=== PATIENT | female | born 1980 | race African-American/Black ===

== ENCOUNTER 2016-12-15 02:46 | Emergency (ER) | payer SELFPAY ==
[~2016-12-15] VITALS: Ht 160 cm; Wt 59.0 kg
[2016-12-15] MEDS ORDERED: ONDANSETRON PF 4 MG/2 ML VIAL. IV ONE (03:15)
[2016-12-15] MEDS ORDERED: IV NORMAL SALINE 1000ML BAG 1,000 ML IV ONE (03:15)
[2016-12-15] MEDS ORDERED: KETOROLAC 30 MG/ML INJ. IV ONE (03:15)
[2016-12-15] MEDS ORDERED: fentaNYL PF VIAL 100 MCG/2 ML VIAL IV ONE (03:15)
[2016-12-15 03:29] LABS: BASO % 1 % (0-3); EOS % 1 % (0-3); HEMATOCRIT 35.1 % (36.0-47.0); HEMOGLOBIN 11.5 g/dL (12.0-15.5); LYMPH # 1.4 x10^3/uL (1.0-4.8); LYMPH % 18 % (24-48); MEAN CORPUSCULAR HEMOGLOBIN 28 pg (25-35); MEAN CORPUSCULAR HGB CONC 33 g/dL (31-37); MEAN CORPUSCULAR VOLUME 85 fL (79-100); MONO % 4 % (0-9); NEUT % 77 % (31-73); PLATELET COUNT 204 x10^3/uL (140-400); RED BLOOD COUNT 4.15 x10^6/uL (3.50-5.40); RED CELL DISTRIBUTION WIDTH 13.7 % (11.5-14.5); WHITE BLOOD COUNT 7.8 x10^3/uL (4.0-11.0)
[2016-12-15 03:32] LABS: BILIRUBIN,URINE NEGATIVE (NEG); GLUCOSE,URINE NEGATIVE (NEG); NITRITE,URINE NEGATIVE (NEG); PH,URINE 5.5; PROTEIN,URINE NEGATIVE (NEG-TRACE); UROBILINOGEN,URINE 0.2 mg/dL (0.2 mg/dL)
[2016-12-15 03:36] LABS: BACTERIA,URINE 0 /HPF (0-FEW); RBC,URINE TNTC /HPF (0-2); WBC,URINE 0 /HPF (0-4)
[2016-12-15 03:37] LABS: SQUAMOUS EPITHELIAL CELL,UR FEW /LPF
[2016-12-15 03:40] LABS: CALCIUM 10.1 mg/dL (8.5-10.1); CREATININE 0.8 mg/dL (0.6-1.0); GFR 97.7; POTASSIUM 3.6 mmol/L (3.5-5.1)
[2016-12-15 03:46] LABS: ALBUMIN 3.9 g/dL (3.4-5.0); ALBUMIN/GLOBULIN RATIO 1.1 (1.0-1.7); MAGNESIUM 1.8 mg/dL (1.8-2.4); TOTAL BILIRUBIN 0.2 mg/dL (0.2-1.0); TOTAL PROTEIN 7.3 g/dL (6.4-8.2)
--- NOTE | 2016-12-15 04:16 | PHYS DOC ---
Past Medical History Past Medical History: Other Additional Past Medical Histor: ulcers Past Surgical History: No Surgical History Alcohol Use: None Drug Use: None Adult General Chief Complaint Chief Complaint: ABDOMINAL PAIN HPI HPI Patient is a 36 year old female presenting to the emergency department for evaluation of worsening back and right-sided abdominal pain that had been worsening over the past 3-4 hours. She says that she has nausea and vomited 3- 4 times. Pain is right upper quadrant to right lower quadrant and goes to the right flank area. She looks quite uncomfortable like kidney stone type pain however she denies having kidney stones before in the past. She has had some urinary frequency but no fevers chills diarrhea constipation dysuria hematuria vaginal bleeding or vaginal discharge. She is uncomfortable but nontoxic- appearing. Review of Systems Review of Systems Constitutional: Denies fever or chills [] Respiratory: Denies cough or shortness of breath [] Cardiovascular: No additional information not addressed in HPI [] GI: + abdominal pain, nausea, vomiting. No bloody stools or diarrhea [] : Denies dysuria or hematuria [] Musculoskeletal: + back pain Neurologic: Denies headache, focal weakness or sensory changes [] Current Medications Current Medications Current Medications Medications (Trade) Dose Ordered Sig/Sandra Start Time Stop Time Status Last Admin Dose Admin Fentanyl Citrate (Fentanyl 2ml Vial) 75 mcg 1X ONCE 12/15/16 03:15 12/15/16 03:58 DC 12/15/16 03:27 75 MCG Ketorolac Tromethamine (Toradol) 30 mg 1X ONCE 12/15/16 03:15 12/15/16 03:58 DC 12/15/16 03:36 30 MG Ondansetron HCl (Zofran) 8 mg 1X ONCE 12/15/16 03:15 12/15/16 03:58 DC 12/15/16 03:26 8 MG Oxycodone/ Acetaminophen (Percocet 5/325) 1 tab 1X ONCE 12/15/16 05:00 12/15/16 05:01 12/15/16 04:51 1 TAB Sodium Chloride 1,000 ml @ 1,000 mls/hr 1X ONCE 12/15/16 03:15 12/15/16 04:14 DC 12/15/16 03:26 1,000 MLS/HR Tamsulosin HCl (Flomax) 0.4 mg 1X ONCE 12/15/16 05:00 12/15/16 05:01 12/15/16 04:51 0.4 MG Allergies Allergies Allergies Coded Allergies Type Severity Reaction Last Updated Verified No Known Drug Allergies 12/15/16 No Physical Exam Physical Exam Constitutional: Well developed, well nourished, no acute distress, non-toxic appearance. [] Cardiovascular:Heart rate regular rhythm, no murmur [] Lungs & Thorax: Bilateral breath sounds clear to auscultation [] Abdomen: Bowel sounds normal, soft. + RUQ AND RLQ tenderness, no rebound or guarding, no masses, no pulsatile masses. [] Skin: Warm, dry, no erythema, no rash. [] Back: No tenderness, + R CVA tenderness. [] Extremities: No tenderness, no cyanosis, no clubbing, ROM intact, no edema. [] Neurologic: Alert and oriented X 3, normal motor function, normal sensory function, no focal deficits noted. [] Current Patient Data Vital Signs Vital Signs Date Time Temp Pulse Resp B/P (MAP) Pulse Ox O2 Delivery O2 Flow Rate FiO2 12/15/16 02:58 98.2 64 18 151/92 (111) 100 Room Air 98.2 Lab Values Laboratory Tests Test 12/15/16 02:53 12/15/16 03:19 12/15/16 03:26 Urine Collection Type Unknown Urine Color Yellow Urine Clarity Clear Urine pH 5.5 Urine Specific [place] 1.015 Urine Protein Negative mg/dL (NEG-TRACE) Urine Glucose (UA) Negative mg/dL (NEG) Urine Ketones (Stick) Negative mg/dL (NEG) Urine Blood Large (NEG) Urine Nitrite Negative (NEG) Urine Bilirubin Negative (NEG) Urine Urobilinogen Dipstick 0.2 mg/dL (0.2 mg/dL) Urine Leukocyte Esterase Negative (NEG) Urine RBC Tntc /HPF (0-2) Urine WBC 0 /HPF (0-4) Urine Squamous Epithelial Cells Few /LPF Urine Bacteria 0 /HPF (0-FEW) Urine Mucus Mod /LPF White Blood Count 7.8 x10^3/uL (4.0-11.0) Red Blood Count 4.15 x10^6/uL (3.50-5.40) Hemoglobin 11.5 g/dL (12.0-15.5) L Hematocrit 35.1 % (36.0-47.0) L Mean Corpuscular Volume 85 fL (79-100) Mean Corpuscular Hemoglobin 28 pg (25-35) Mean Corpuscular Hemoglobin Concent 33 g/dL (31-37) Red Cell Distribution Width 13.7 % (11.5-14.5) Platelet Count 204 x10^3/uL (140-400) Neutrophils (%) (Auto) 77 % (31-73) H Lymphocytes (%) (Auto) 18 % (24-48) L Monocytes (%) (Auto) 4 % (0-9) Eosinophils (%) (Auto) 1 % (0-3) Basophils (%) (Auto) 1 % (0-3) Neutrophils # (Auto) 6.0 x10^3uL (1.8-7.7) Lymphocytes # (Auto) 1.4 x10^3/uL (1.0-4.8) Monocytes # (Auto) 0.3 x10^3/uL (0.0-1.1) Eosinophils # (Auto) 0.0 x10^3/uL (0.0-0.7) Basophils # (Auto) 0.0 x10^3/uL (0.0-0.2) Sodium Level 142 mmol/L (136-145) Potassium Level 3.6 mmol/L (3.5-5.1) Chloride Level 104 mmol/L (98-107) Carbon Dioxide Level 23 mmol/L (21-32) Anion Gap 15 (6-14) H Blood Urea Nitrogen 16 mg/dL (7-20) Creatinine 0.8 mg/dL (0.6-1.0) Estimated GFR (Cockcroft-Gault) 97.7 BUN/Creatinine Ratio 20 (6-20) Glucose Level 133 mg/dL (70-99) H Calcium Level 10.1 mg/dL (8.5-10.1) Magnesium Level 1.8 mg/dL (1.8-2.4) Total Bilirubin 0.2 mg/dL (0.2-1.0) Aspartate Amino Transferase (AST) 21 U/L (15-37) Alanine Aminotransferase (ALT) 25 U/L (14-59) Alkaline Phosphatase 32 U/L (46-116) L Total Protein 7.3 g/dL (6.4-8.2) Albumin 3.9 g/dL (3.4-5.0) Albumin/Globulin Ratio 1.1 (1.0-1.7) Lipase 212 U/L (73-393) POC Urine HCG, Qualitative Hcg negative (Negative) Laboratory Tests 12/15/16 03:19 Laboratory Tests 12/15/16 03:19 EKG EKG [] Radiology/Procedures Radiology/Procedures INDICATION: right flank pain; hematuria COMPARISON: None. TECHNIQUE: Axial CT images were obtained through the abdomen and pelvis without intravenous contrast. Limited assessment of solid organ structures and vasculature secondary to lack of intravenous contrast. One or more of the following individualized dose reduction techniques were utilized for this examination: 1. Automated exposure control; 2. Adjustment of the mA and/or kV according to patient size; 3. Use of iterative reconstruction technique. FINDINGS: Chest Base: Partially imaged without gross abnormality. Vessels: No abdominal aortic aneurysm. Liver/Biliary: No intrahepatic biliary duct dilation. Pancreas: No peripancreatic edema. Poorly evaluated without contrast. Spleen: Normal. Kidneys/Adrenal: Right-sided hydronephrosis with perinephric edema and small amount of perinephric fluid. The ureter is difficult to follow in the pelvis secondary to lack of adjacent fat. There are multiple calcifications seen within the pelvis bilaterally including a calcification near the expected location of the right distal ureter measuring approximately 5 mm Bladder: Largely decompressed. GI: Moderate amount of stool is seen with the distal colon. Portions of the colon are not very distended with prominence of the wall including portions of transverse and descending colon. The suspected appendix appears mildly distended up to 8 mm without definite surrounding inflammation at this time. Small fat-containing umbilical hernia. Calcification left side of uterus, could be fibroid. Degenerative changes the spine with multiple suspected disc protrusions with associated central canal and neural foraminal stenosis. IMPRESSION: 1. Right-sided hydronephrosis and hydroureter with perinephric edema and fluid seen. There is a suspected right distal ureter stone. 2. The appendix is mildly dilated but no definite adjacent inflammatory changes at this time. Please note that some patients can have a dilated appendix at baseline but if there is concern for appendicitis further imaging workup includes obtaining a follow-up CT to ensure that there is not interval increase in size of the appendix or development of definitive adjacent inflammation to suggest causes such as appendicitis. 3. Suspected uterine fibroid. Electronically signed by: Ashwini Espinoza MD (12/15/2016 4:25 AM) [facility] DICTATED and SIGNED BY: ASHWINI ESPINOZA MD DATE: 12/15/16406 Course & Med Decision Making Course & Med Decision Making Her symptoms are most consistent with a kidney stone so we'll order CT without contrast ordered labs urine and treat symptoms and reassess. Pain and nausea almost completely resolved with the treatment of fentanyl Toradol and Zofran. CT most consistent with still ureter stone given the hydronephrosis however the multiple phleboliths made it more difficult to make a definitive diagnosis. I have no concerns for appendicitis based on patient's exam and presentation. Patient stone is fairly large and I discussed inpatient versus outpatient treatment. I told her that she would need to be transferred to another facility if she is going to be treated inpatient for pain and urology consult. Patient would very much rather go home as her pain and nausea are almost completely gone. I told her to come back to the emergency department with any new or worsening pain fevers vomiting or other general concerns. Patient will be discharged with Percocet Zofran and Flomax. Patient aware and agreeable with plan for discharge and verbalized understanding of the need for short-term follow-up in the strict ED return precautions discussed as above. Dragon Disclaimer Dragon Disclaimer This electronic medical record was generated, in whole or in part, using a voice recognition dictation system. Departure Departure Impression: Primary Impression: Ureteral stone with hydronephrosis Disposition: HOME, SELF-CARE Condition: STABLE Referrals: NO PCP (PCP) Patient Instructions: Kidney Stones Additional Instructions: TAKE 400MG OF IBUPROFEN EVERY 6 HOURS AND THE PERCOCET FOR BREAKTHROUGH PAIN. MAKE SURE THAT YOU ARE DRINKING PLENTY OF WATER. PLEASE CALL THIS NUMBER AT [facility] TO GET UROLOGY FOLLOW UP. [phone]. COME BACK TO THE ED WITH WORSENING PAIN, FEVERS, VOMITING, OR OTHER GENERAL CONCERNS. THANK YOU! Scripts Tamsulosin Hcl (FLOMAX) 0.4 Mg Cap.er.24h 1 CAP PO QHS, #6 CAP 0 Refills Prov: JOHNNA BOWMAN DO 12/15/16 Ondansetron (ZOFRAN ODT) 4 Mg Tab.rapdis 4 MG PO BID Y for NAUSEA/VOMITING, #10 TAB Prov: JOHNNA BOWMAN DO 12/15/16 Oxycodone/Apap 5-325 (PERCOCET 5-325 MG TABLET) 1 Each Tablet 1 TAB PO PRN Q6HRS Y for PAIN, #20 TAB 0 Refills Prov: JOHNNA BOWMAN DO 12/15/16 JOHNAN BOWMAN DO Dec 15, 2016 04:16
--- NOTE | 2016-12-15 04:28 | RAD ---
INDICATION: right flank pain; hematuria COMPARISON: None. TECHNIQUE: Axial CT images were obtained through the abdomen and pelvis without intravenous contrast. Limited assessment of solid organ structures and vasculature secondary to lack of intravenous contrast. One or more of the following individualized dose reduction techniques were utilized for this examination: 1. Automated exposure control; 2. Adjustment of the mA and/or kV according to patient size; 3. Use of iterative reconstruction technique. FINDINGS: Chest Base: Partially imaged without gross abnormality. Vessels: No abdominal aortic aneurysm. Liver/Biliary: No intrahepatic biliary duct dilation. Pancreas: No peripancreatic edema. Poorly evaluated without contrast. Spleen: Normal. Kidneys/Adrenal: Right-sided hydronephrosis with perinephric edema and small amount of perinephric fluid. The ureter is difficult to follow in the pelvis secondary to lack of adjacent fat. There are multiple calcifications seen within the pelvis bilaterally including a calcification near the expected location of the right distal ureter measuring approximately 5 mm Bladder: Largely decompressed. GI: Moderate amount of stool is seen with the distal colon. Portions of the colon are not very distended with prominence of the wall including portions of transverse and descending colon. The suspected appendix appears mildly distended up to 8 mm without definite surrounding inflammation at this time. Small fat-containing umbilical hernia. Calcification left side of uterus, could be fibroid. Degenerative changes the spine with multiple suspected disc protrusions with associated central canal and neural foraminal stenosis. IMPRESSION: 1. Right-sided hydronephrosis and hydroureter with perinephric edema and fluid seen. There is a suspected right distal ureter stone. 2. The appendix is mildly dilated but no definite adjacent inflammatory changes at this time. Please note that some patients can have a dilated appendix at baseline but if there is concern for appendicitis further imaging workup includes obtaining a follow-up CT to ensure that there is not interval increase in size of the appendix or development of definitive adjacent inflammation to suggest causes such as appendicitis. 3. Suspected uterine fibroid. Electronically signed by: Lupillo Espinoza MD (12/15/2016 4:25 AM) [facility]
[2016-12-15] MEDS ORDERED: TAMSULOSIN 0.4 MG CAP.ER.24H. PO ONE (05:00)
[2016-12-15] MEDS ORDERED: oxyCODONE/APAP 5/325 1 TAB TABLET PO ONE (05:00)
[2016-12-15] MEDS ORDERED: ONDA4TAB10 PO (05:02)
[2016-12-15] MEDS ORDERED: OXYC-323 PO (05:02)
[2016-12-15] MEDS ORDERED: TAMS0.4C97 PO (05:02)
[2016-12-15 05:08] VITALS: BP 124/80
== END 2016-12-15 05:20 | disposition home or self-care (01) ==
LOC: ER 02:46
DX: N13.2 Hydronephrosis with renal and ureteral calculous obstruction (principal)
CPT/HCPCS: 36415; 74176; 80053; 81001; 81025; 83690; 83735; 85025; 96361; 96374; 96375; 99285; J1885; J2405; J3010; J7030

== ENCOUNTER 2017-01-19 09:54 | Emergency (ER) | payer SELFPAY ==
[~2017-01-19] VITALS: Ht 157.5 cm; Wt 61.2 kg
[~2017-01-19 09:54] MED LIST: ONDA4TAB10 PO; OXYC-323 PO; TAMS0.4C97 PO
[2017-01-19 10:00] VITALS: BP 146/90
--- NOTE | 2017-01-19 10:13 | PHYS DOC ---
Past Medical History Past Medical History: Other Additional Past Medical Histor: ulcers Past Surgical History: No Surgical History Alcohol Use: None Drug Use: None Adult General Chief Complaint Chief Complaint: LOWER EXT PAIN HPI HPI Patient is a 36 year old female presents to the emergency department stating that she was seen on Tuesday for right thigh pain and discomfort. She was placed on naproxen and baclofen. She states that she kicked medication Tuesday and Tuesday and felt no relief therefore she stopped taking the medication. She states it feels like a cramping-type pain in her muscles she rates it a 5 out of 10. She states that she has no numbness or tingling down to the lower extremity. She states that the constant pain. She denies any injury or trauma to the leg. She denies any back pain or discomfort. Review of Systems Review of Systems Constitutional: Denies fever or chills [] Eyes: Denies change in visual acuity, redness, or eye pain [] HENT: Denies nasal congestion or sore throat [] Respiratory: Denies cough or shortness of breath [] Cardiovascular: No additional information not addressed in HPI [] GI: Denies abdominal pain, nausea, vomiting, bloody stools or diarrhea [] : Denies dysuria or hematuria [] Musculoskeletal: Denies back pain. C/o right thigh pain Integument: Denies rash or skin lesions [] Neurologic: Denies headache, focal weakness or sensory changes [] Endocrine: Denies polyuria or polydipsia [] All other systems were reviewed and found to be within normal limits, except as documented in this note. Allergies Allergies Allergies Coded Allergies Type Severity Reaction Last Updated Verified No Known Drug Allergies 12/15/16 No Physical Exam Physical Exam Constitutional: Well developed, well nourished, no acute distress, non-toxic appearance. [] HENT: Normocephalic, atraumatic, bilateral external ears normal, oropharynx moist, no oral exudates, nose normal. [] Eyes: PERRLA, EOMI, conjunctiva normal, no discharge. [] Neck: Normal range of motion, no tenderness, supple, no stridor. [] Cardiovascular:Heart rate regular rhythm, no murmur [] Lungs & Thorax: Bilateral breath sounds clear to auscultation []] Skin: Warm, dry, no erythema, no rash. [] Back: No tenderness Extremities: Right thigh with palpable tenderness, no cyanosis, no clubbing, ROM intact, no edema. Peripheral pulses 2+ cap refill brisk, less than 2 seconds. Neurologic: Alert and oriented X 3, normal motor function, normal sensory function, no focal deficits noted. [] Psychologic: Affect normal, judgement normal, mood normal. [] Current Patient Data Vital Signs Vital Signs Date Time Temp Pulse Resp B/P (MAP) Pulse Ox O2 Delivery O2 Flow Rate FiO2 01/19/17 10:00 98.5 77 18 99 Room Air 98.5 EKG EKG [] Radiology/Procedures Radiology/Procedures [][facility] [address] [place] [address] IMAGING REPORT Signed PATIENT: MARILYN GARCIA ACCOUNT: [id number] : 1980 LOCATION: ER AGE: 36 SEX: F EXAM STATUS: PRE ER ORD. PHYSICIAN: KENYON MONTEZ APRN REASON: right thigh pain and discomfort for 1 week PROCEDURE: VENOUS LOWER EXTREMITY RIGHT Right lower extremity venous ultrasound, 01/19/2017 : History: Right thigh pain Duplex evaluation including grayscale, color flow and spectral Doppler analysis was performed. The femoral and popliteal veins show no filling defects to suggest DVT. The visualized deep veins in the right calf are unremarkable. IMPRESSION: There is no sonographic evidence of deep vein thrombosis in the right lower extremity DICTATED and SIGNED BY: MARK CARRERO MD DATE: 01/19/17 1045 CC: KENYON MONTEZ APRN; NO PCP ~ Course & Med Decision Making Course & Med Decision Making Pertinent Labs and Imaging studies reviewed. (See chart for details) Venous Doppler of the right leg was negative for DVT per radiologist. Patient will be discharged home in stable condition. She was instructed to continue to use the medications a prescribed. Recommended warm moist packs to the right thigh several times a day. Patient will be discharge home in stable condition. I've spoken with the patient and/or caregivers. I've explained the patient's condition, diagnosis and treatment plan based on information available to me at this time. I've answered the patient's and/or caregivers questions and addressed any concerns. The patient and/or caregivers have a good understanding the patient's diagnosis, condition and treatment plan as can be expected at this point. Vital signs have been stabilized. The patient's condition is stable for discharge from the emergency department. The patient will pursue further outpatient evaluation with her primary care provider or other designated consulting physician as outlined in the discharge instructions. Patient and/or caregivers are agreeable to this plan of care and follow-up instructions have been explained in detail. The patient and/or caregivers have received these instructions in written format and expressed understanding of these discharge instructions. The patient and her caregivers are aware that if any significant change in condition or worsening of symptoms should prompt him to immediately return to this of the closest emergency department.~ If an emergent department is not readily available I would encourage him to call 911. [] Dragon Disclaimer Dragon Disclaimer This electronic medical record was generated, in whole or in part, using a voice recognition dictation system. Departure Departure Impression: Primary Impression: Right thigh pain Disposition: HOME, SELF-CARE Condition: STABLE Referrals: NO PCP (PCP) Patient Instructions: Muscle Strain, [id number] Additional Instructions: Activity as tolerated Continue with the Baclofen and Naproxen that you have been prescribed Warm moist packs to the right thigh area several times a day Elevation as much as possible Followup with your primary care provider in 5-7 days Return to emergency department as needed for signs and symptoms that becomes worse. KENYON MONTEZ APRN Jan 19, 2017 10:13
--- NOTE | 2017-01-19 10:51 | RAD ---
Right lower extremity venous ultrasound, 01/19/2017 : History: Right thigh pain Duplex evaluation including grayscale, color flow and spectral Doppler analysis was performed. The femoral and popliteal veins show no filling defects to suggest DVT. The visualized deep veins in the right calf are unremarkable. IMPRESSION: There is no sonographic evidence of deep vein thrombosis in the right lower extremity
== END 2017-01-19 11:12 | disposition home or self-care (01) ==
LOC: ER 09:54
DX: M79.651 Pain in right thigh (principal)
CPT/HCPCS: 93971; 99284-25

== ENCOUNTER 2018-03-27 09:36 | Emergency (ER) | payer SELFPAY ==
[~2018-03-27] VITALS: Ht 172.7 cm; Wt 59.0 kg
[~2018-03-27 09:36] MED LIST changes: -OXYC-323 PO; +OXYC1TAB15 PO
[2018-03-27] MEDS ORDERED: LIDO:MAALOX 1:1 20 ML SINGLE DOSE. ONE (11:31)
[2018-03-27 11:40] LABS: BILIRUBIN,URINE NEGATIVE (NEG); CLARITY,URINE CLEAR; COLOR,URINE YELLOW; NITRITE,URINE NEGATIVE (NEG); PROTEIN,URINE 30 mg/dL (NEG-TRACE)
--- NOTE | 2018-03-27 11:41 | PHYS DOC ---
Past Medical History Past Medical History: No Pertinent History Additional Past Medical Histor: ulcers Past Surgical History: No Surgical History Alcohol Use: None Drug Use: None Adult General Chief Complaint Chief Complaint: ABDOMINAL PAIN HPI HPI Patient is a 37 year old female who presents with complaining of lower abdominal pain for 3 days. Patient states she developed an allergic rash and marked lower abdominal pain 3 days ago and took Benadryl and since taking Benadryl had constant and severe lower abdominal pain patient to her back. Patient complaining of nausea and one episode of vomiting last night. Patient denies urinary symptoms, constipation and diarrhea, fever and chills, history of vaginal bleeding or , history of the same pain.Patient states the rash resolved after taking Benadryl but abdominal pain is not getting better. Review of Systems Review of Systems Constitutional: Denies fever or chills [] Eyes: Denies change in visual acuity, redness, or eye pain [] HENT: Denies nasal congestion or sore throat [] Respiratory: Denies cough or shortness of breath [] Cardiovascular: No additional information not addressed in HPI [] GI: Reports abdominal pain, nausea, vomiting, denies bloody stools or diarrhea [ ] : Denies dysuria or hematuria [] Musculoskeletal: Denies back pain or joint pain [] Integument: Denies rash or skin lesions [] Neurologic: Denies headache, focal weakness or sensory changes [] Endocrine: Denies polyuria or polydipsia [] All other systems were reviewed and found to be within normal limits, except as documented in this note. Current Medications Current Medications Current Medications Medications (Trade) Dose Ordered Sig/[facility] Start Time Stop Time Status Last Admin Dose Admin Multi-Ingredient Mouthwash/Gargle (Gi Cocktail) 20 ml STK-MED ONCE 03/27/18 11:31 03/27/18 11:33 DC Allergies Allergies Allergies Coded Allergies Type Severity Reaction Last Updated Verified No Known Drug Allergies 12/15/16 No Physical Exam Physical Exam Constitutional: Well developed, well nourished,mild distress, non-toxic appearance. [] HENT: Normocephalic, atraumatic, oropharynx moist, no oral exudates, nose normal. [] Eyes: PERRLA, EOMI, conjunctiva normal, no discharge. [] Neck: Normal range of motion, no tenderness, supple, no stridor. [] Cardiovascular:Heart rate regular rhythm, no murmur [] Lungs & Thorax: Bilateral breath sounds clear to auscultation [] Abdomen: Bowel sounds normal, soft, no tenderness, no masses, no pulsatile masses. [] Skin: Warm, dry, no erythema, no rash. [] Back: No tenderness, no CVA tenderness. [] Extremities: No tenderness, no cyanosis, no clubbing, ROM intact, no edema. [] Neurologic: Alert and oriented X 3, normal motor function, normal sensory function, no focal deficits noted. [] Psychologic: Affect normal, judgement normal, mood normal. [] Current Patient Data Vital Signs Vital Signs Date Time Temp Pulse Resp B/P (MAP) Pulse Ox O2 Delivery O2 Flow Rate FiO2 03/27/18 14:15 114 16 135/68 (90) 98 Room Air 03/27/18 09:45 99.1 99.1 Lab Values Laboratory Tests Test 03/27/18 11:14 03/27/18 11:19 Urine Collection Type Unknown Urine Color Yellow Urine Clarity Clear Urine pH 6.0 Urine Specific [place] >=1.030 Urine Protein 30 mg/dL (NEG-TRACE) Urine Glucose (UA) Negative mg/dL (NEG) Urine Ketones (Stick) Trace mg/dL (NEG) Urine Blood Small (NEG) Urine Nitrite Negative (NEG) Urine Bilirubin Negative (NEG) Urine Urobilinogen Dipstick 1.0 mg/dL (0.2 mg/dL) Urine Leukocyte Esterase Negative (NEG) Urine RBC 6-10 /HPF (0-2) Urine WBC Rare /HPF (0-4) Urine Squamous Epithelial Cells Few /LPF Urine Bacteria Few /HPF (0-FEW) Urine Mucus Marked /LPF POC Urine HCG, Qualitative Hcg negative (Negative) EKG EKG [] Radiology/Procedures Radiology/Procedures [facility] [address] [place] [address] IMAGING REPORT Signed PATIENT: MARILYN GARCIA ACCOUNT: [id number] : 1980 LOCATION: ER AGE: 37 SEX: F EXAM STATUS: REG ER ORD. PHYSICIAN: EMILY ZHU MD REASON: lower abdominal pain and hematuria, history of kidney stone PROCEDURE: CT ABDOMEN PELVIS WO CONTRAST CT of the abdomen and pelvis without contrast 03/27/2018 INDICATION: Kidney stone, flank pain. Dysuria. COMPARISON STUDY: CT of the abdomen and pelvis without contrast December 15, 2016. TECHNIQUE: Multidetector CT imaging of the abdomen and pelvis was performed without the administration of IV contrast. FINDINGS: Visualized lung bases are unremarkable. Liver, gallbladder, adrenal glands, spleen, and pancreas are grossly unremarkable. The bilateral kidneys demonstrate no nephrolithiasis, or hydronephrosis. The ureters are unremarkable in course and caliber. No ureteral stone is identified. The bladder is poorly evaluated secondary to decompressed state. Calcified uterine lesion consistent with a fibroid noted. No significant free fluid or free air seen in the abdomen or pelvis. There is no evidence of bowel obstruction. No evidence of acute inflammatory change involving the bowel is identified. Some intramural colonic fat noted. This is of uncertain clinical significance. This is unchanged from comparison study. No acute osseous abnormality is identified. IMPRESSION: No evidence of acute intra-abdominal abnormality is seen. CT DOSING PQRS STATEMENT: One or more of the following individualized dose reduction techniques were utilized for this examination: 1. Automated exposure control 2. Adjustment of the mA and/or kV according to patient size 3. Use of iterative reconstruction technique Electronically signed by: Doc Bee MD (03/27/2018 2:00 PM) [facility] DICTATED and SIGNED BY: DOC BEE MD DATE: 03/27/18 4709 Course & Med Decision Making Course & Med Decision Making Pertinent Labs and Imaging studies reviewed. (See chart for details) Evaluation of patient in ER showed 37-year-old female patient with complaining of lower abdominal pain for 3 days that became worse after allergic rash. Had unremarkable physical exam except for lower abdominal guarding. UA showed microscopic hematuria and CT of abdomen and pelvis did not show acute finding. Patient felt better with GI cocktail. Plan discharge patient home to diagnose of abdominal pain. Dragon Disclaimer Dragon Disclaimer This electronic medical record was generated, in whole or in part, using a voice recognition dictation system. Departure Departure Impression: Primary Impression: Lower abdominal pain Additional Impression: Microscopic hematuria Disposition: HOME, SELF-CARE (at 1430) Condition: IMPROVED Referrals: NO PCP (PCP) Patient Instructions: Abdominal Pain (Nonspecific), Drug Allergy Additional Instructions: Drink plenty of liquids Follow-up with your primary care physician in 3-5 days Return to ER if not getting better Scripts Tramadol Hcl (ULTRAM) 50 Mg Tablet 50 MG PO Q6HRS PRN for PAIN, #14 TAB 0 Refills Prov: EMILY ZHU MD 03/27/18 Problem Qualifiers EMILY ZHU MD Mar 27, 2018 11:41
[2018-03-27] MEDS ORDERED: LIDO:MAALOX 1:1 20 ML SINGLE DOSE. SWSW ONE (11:45)
[2018-03-27 11:48] LABS: BACTERIA,URINE FEW /HPF (0-FEW); SQUAMOUS EPITHELIAL CELL,UR FEW /LPF; WBC,URINE RARE /HPF (0-4)
--- NOTE | 2018-03-27 14:04 | RAD ---
CT of the abdomen and pelvis without contrast 03/27/2018 INDICATION: Kidney stone, flank pain. Dysuria. COMPARISON STUDY: CT of the abdomen and pelvis without contrast December 15, 2016. TECHNIQUE: Multidetector CT imaging of the abdomen and pelvis was performed without the administration of IV contrast. FINDINGS: Visualized lung bases are unremarkable. Liver, gallbladder, adrenal glands, spleen, and pancreas are grossly unremarkable. The bilateral kidneys demonstrate no nephrolithiasis, or hydronephrosis. The ureters are unremarkable in course and caliber. No ureteral stone is identified. The bladder is poorly evaluated secondary to decompressed state. Calcified uterine lesion consistent with a fibroid noted. No significant free fluid or free air seen in the abdomen or pelvis. There is no evidence of bowel obstruction. No evidence of acute inflammatory change involving the bowel is identified. Some intramural colonic fat noted. This is of uncertain clinical significance. This is unchanged from comparison study. No acute osseous abnormality is identified. IMPRESSION: No evidence of acute intra-abdominal abnormality is seen. CT DOSING PQRS STATEMENT: One or more of the following individualized dose reduction techniques were utilized for this examination: 1. Automated exposure control 2. Adjustment of the mA and/or kV according to patient size 3. Use of iterative reconstruction technique Electronically signed by: Sunny Babcock MD (03/27/2018 2:00 PM) [facility]
[2018-03-27 14:15] VITALS: BP 135/68
[2018-03-27] MEDS ORDERED: TRAM-48 PO (14:32)
== END 2018-03-27 14:42 | disposition home or self-care (01) ==
LOC: ER 09:36
DX: R10.30 Lower abdominal pain, unspecified (principal); R11.2 Nausea with vomiting, unspecified; R31.29 Other microscopic hematuria; T78.49XA Other allergy, initial encounter; X58.XXXA Exposure to other specified factors, initial encounter
CPT/HCPCS: 74176; 81001; 81025; 99284-25